=== PATIENT | female | born 1995 | race Two or more races ===

== ENCOUNTER 2022-09-28 20:36 | Emergency (ER) | payer OTHER ==
[~2022-09-28] VITALS: Ht 167.6 cm; Wt 77.1 kg
[2022-09-28 20:59] VITALS: BP 112/65
--- NOTE | 2022-09-28 21:30 | NUR ---
covid pcr swab done and sent to lab
[2022-09-28] MEDS ORDERED: IBUP-1955 PO (21:36)
--- NOTE | 2022-09-28 21:48 | NUR ---
Patient discharged to home in stable condition. Written and verbal after care instructions given. Patient verbalizes understanding of instruction. Pt ambulatory with a steady gait
== END 2022-09-28 21:49 | disposition home or self-care (01) ==
LOC: ER 20:58
DX: J06.9 Acute upper respiratory infection, unspecified (principal); Z20.822 Contact with and (suspected) exposure to COVID-19
CPT/HCPCS: 99283; U0003; C9803